=== PATIENT | male | born 1990 | race Caucasian/White ===

== ENCOUNTER 2022-07-05 08:20 | Outpatient (CLI) | payer BC, SELFPAY ==
--- NOTE | ~2022-07-05 | US_ITS ---
EXAMINATION: US venous doppler LE RT DATE: 07/05/2022 08:55 INDICATION: Closed bimalleolar fracture of right ankle. Right lower limb swelling. TECHNIQUE: Grayscale ultrasound images without and with compression and Doppler ultrasound images of the right lower extremity veins were obtained. COMPARISON: None. FINDINGS: The visualized portions of right common femoral vein, profunda (deep) femoral vein, femoral vein, pop liteal vein, peroneal veins, posterior tibial veins, and greater saphenous vein outflow are patent. T here is subcutaneous edema in right calf. IMPRESSION: 1. No deep venous thrombosis. Reviewed, dictated and finalized at location A. BAILIFF
== END 2022-07-05 08:21 | disposition home or self-care (01) ==
PROVIDERS: Visit Provider Orthopaedic Surgery
DX: S82.841A Displaced bimalleolar fracture of right lower leg, initial encounter for closed fracture (principal); X58.XXXA Exposure to other specified factors, initial encounter
CPT/HCPCS: 93971

== ENCOUNTER 2022-07-15 18:53 | Observation (INO) | payer BC, SELFPAY ==
--- NOTE | ~2022-07-15 | XR_ITS ---
EXAM: XR ankle RT min 3V DATE: 07/15/2022 20:01 HISTORY: pain NON INJ RECENT SURG ACUTE SWELLING DISCOLORED OOZE . COMPARISON: None available. FINDINGS: Decreased and patchy mineralization. Screw and plate fixation of the distal right fibula, no perihardware lucency or hardware fracture. No new acute fracture or dislocation. No lytic or blast ic lesion. Joint spaces are maintained. No erosion or periosteal change. Marked lateral soft tissue s welling with generalized leg and ankle subcutaneous edema. IMPRESSION: No radiographic evidence of osteomyelitis or hardware related complication. Disuse osteop enia. Marked lateral soft tissue swelling and generalized edema. Reviewed, dictated and finalized at location K. IMPRESSION: No radiographic evidence of osteomyelitis or hardware related compl ication. Disuse osteopenia. Marked lateral soft tissue swelling and generalized edema.
--- NOTE | ~2022-07-15 | XR_ITS ---
Clinical Indication: Sepsis PA and lateral views of the chest: Comparison: None Findings: The lungs are clear, without evidence of focal consolidation or pleural effusion. Cardiome diastinal silhouette is within normal limits. Bones and soft tissues are unremarkable. Impression: Normal chest. Reviewed, dictated and finalized at location . Impression: Normal chest.
[2022-07-15 19:16] VITALS: BP 148/87; PULSE 126; RESP 18; TEMP 37.4; O2SAT 97
[2022-07-15 21:20] LABS: Basophils Absolute Auto 0.1 K/mm3 (0.0-0.1); Basophils Percent Auto 0.4 % (0.2-1.2); Eosinophils Absolute Auto 0.1 K/mm3 (0-0.3); Eosinophils Percent Auto 0.8 % (0-4.4); Hematocrit 43.1 % (42.0-52.0); Hemoglobin 14.2 g/dL (14.0-18.0); Immature Granulocyte Absolute 0.07 K/mm3 (0.00-0.031); Immature Granulocyte Percent A 0.4 % (0-0.5); Lymphocytes Absolute Auto 1.63 K/mm3 (0.9-3.2); Lymphocytes Percent Auto 9.9 % (18.3-44.2); Mean Corpuscular HGB Conc 32.9 g/dl (32-36); Mean Corpuscular Hemoglobin 28.7 pg (26-34); Mean Corpuscular Volume 87.1 fl (80-100); Monocytes Absolute Auto 1.1 K/mm3 (0.1-0.6); Monocytes Percent Auto 6.6 % (2.6-8.5); Neutrophils Absolute Auto 13.5 K/mm3 (1.3-6.7); Neutrophils Percent Auto 81.9 % (45.5-73.1); Platelet Count Result 287 k/mm3 (150-375); Red Blood Count 4.95 M/mm3 (4.6-6.20); Red Cell Distribution Width 13.2 % (11.5-14.5); White Blood Count 16.5 K/mm3 (4.5-10.0)
[2022-07-15 21:29] LABS: Anion Gap 6 mmol/L (8-16); Blood Urea Nitrogen 19 mg/dL (9-20); Calcium 9.7 mg/dL (8.4-10.2); Carbon Dioxide 31 mmol/L (22-30); Chloride 104 mmol/L (98-107); Estimated CRCL calculation 135 ml/min; Estimated Glomerular Filt Rate > 60; Glucose 96 mg/dL (65-110); Potassium 4.5 mmol/L (3.4-5.0); Sodium 141 mmol/L (137-145)
[2022-07-15 23:23] VITALS: BP 141/88; PULSE 110; RESP 16; O2SAT 99
[2022-07-16] VITALS (13 sets, daily range): BP systolic 101–138; BP diastolic 49–87; PULSE 73–106; RESP 16–20; TEMP 36.4–36.9; O2SAT 98–100; BMI 47.6
--- NOTE | 2022-07-16 00:21 | ED.GENADULT ---
HPI - General Adult General Chief complaint: Extremity Injury, Lower <Kimo Hanna PA-C - Last Filed: 07/17/22 21:13> Stated complaint: possible infection <Kimo Hanna PA-C - Last Filed: 07/17/22 21:13> Time Seen by Provider: 07/16/22 00:15 <Kimo Hanna PA-C - Last Filed: 07/17/22 21:13> History of Present Illness HPI narrative: This is a 32-year-old male who presents to the ED with chief complaint of right lower leg swelling and redness and pain beginning this morning. States it started out as a 5 out of 10 and since he has been in the emergency department has increased to an 8 out of 10 pain. Reports swelling in the right foot and up into the right calf. He had an ankle fracture in March and had surgical hardware placed at that time. On July 05 he had another operation to take out one of the screws. He was doing fine with this operation up until today. He notes some drainage from the wound site that was orange/yellow in color. Reports low-grade fevers. Denies LOC, headache, nausea, vomiting, abdominal pain, chest pain, shortness of breath. He follows with [facility] orthopedics, Dr. Flores. <Kimo Hanna PA-C - Last Filed: 07/17/22 21:13> Related Data Home medications: Home Medications Medication Instructions Recorded Confirmed omeprazole 20 mg delayed 20 mg PO EVERY OTHER DAY 07/16/22 07/16/22 release,disintegrating tablet <Kimo Hanna PA-C - Last Filed: 07/17/22 21:13> Allergies/adverse reactions: Allergies Allergy/AdvReac Type Severity Reaction Status Date / Time Sulfa (Sulfonamide Allergy Swelling Verified 07/15/22 18:55 Antibiotics) <Kimo Hanna PA-C - Last Filed: 07/17/22 21:13> Review of Systems Review of Systems: CONSTITUTIONAL: Denies fever, chills, or sweats. EYES: Denies visual changes, redness, or discharge. ENT: Denies rhinorrhea, congestion, sore throat, or otalgia. CARDIOVASCULAR: Denies chest pain, palpitations, or edema. RESPIRATORY: Denies cough or dyspnea. GASTROINTESTINAL: Denies abdominal pain, nausea, vomiting, or diarrhea. GENITOURINARY: Denies dysuria or hematuria. SKIN: Endorses RLE drainage. Endorses RLE erythema. Denies rash or itching. MUSCULOSKELETAL: Endorses right lower extremity swelling and pain. Denies back pain, joint pain, or myalgia. NEUROLOGIC: Denies headache, numbness, dizziness, or weakness. PSYCHIATRIC: Denies anxiety or depression. <Kimo Hanna PA-C - Last Filed: 07/17/22 21:13> [facility] Past Medical History Medical History: Medical History Morbid obesity with BMI of 40.0-44.9, adult <Kimo Hanna PA-C - Last Filed: 07/17/22 21:13> Surgical History Surgical History: Surgical History Status post open reduction with internal fixation of fracture (03/2022) Right ankle fracture; with subsequent surgery July 05, 2022 chief removed the screw from patient's ankle <Kimo Hanna PA-C - Last Filed: 07/17/22 21:13> Family History Family History: Family History Mother Diabetes mellitus Father Diabetes mellitus <Kimo Hanna PA-C - Last Filed: 07/17/22 21:13> Social History Social History: Social History Social History: He is single has never been . He has a 10-year-old daughter that he shares custody of with his ex. He is a lifelong nonsmoker. He very rarely drinks alcohol and only in small amounts. He denies any illicit substance use. 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 Smoking status: Never smoker Alcohol intake: never Substance use: never Lack of Transportation: No Lack of Food: Never True Current Housing: I Have Housing Concerned About Future Housing: No Difficulty Paying Gas/Electric Bills: No Difficulty Paying for Meds: No
--- NOTE | 2022-07-16 00:37 | ECG_ITS ---
Measurements Intervals [place] Rate: 106 P: 18 PA: 157 QRS: 3 QRSD: 89 T: -1 QT: 319 QTc: 425 Interpretive Statements SINUS TACHYCARDIA EARLY PRECORDIAL R/S TRANSITION CONSIDER INFERIOR INFARCT, AGE INDETERMINATE ST ELEVATION IN ANT/HIGH LAT LEADS- PROBABLY EARLY REPOLARIZATION ABNORMALITY BASELINE ARTIFACT- I, III, AVL, AVF ABNORMAL ECG NO PREVIOUS ECG AVAILABLE FOR COMPARISON Electronically Signed On 07-16-2022 6:49:09 CDT by Melvin Arguello D.O.
--- NOTE | 2022-07-16 01:10 | PC.NURSE ---
pt states he noticed redness and swelling to r leg/foot yesterday morning. pt had r ankle sx in March and on 07/05 pt had another sx to remove screw. sutures in place to lateral aspect of ankle. pt states it had some drainage from the site yesterday morning. none noted at this time. pedal pulse palpable. pt denies any numbness/tingling.
[2022-07-16] MEDS: SODIUM CHLORIDE 0.9% IV 1,000 ML 999 ML IV CONT ×2 (01:20→03:31)
[2022-07-16 01:52] LABS: CRP 2.5 mg/dL (<1.0)
[2022-07-16 03:00] LABS: Appearance Urine Clear (Clear); Bilirubin Urine Negative (Negative); Blood Urine Negative (Negative); Color Urine Yellow (Yellow); Glucose Urine UA Negative (Negative); Ketones Urine Negative (Negative); Leukocyte Esterase Ur Negative LEU/UL (Negative); Nitrate Urine Negative (Negative); Protein Urine Negative (Negative); Specific Grav Ur 1.017 (1.001-1.035); Urobilinogen Urine 0.2 mg/dL (<2.0); pH Urine 5.5 (5.0-9.0)
[2022-07-16 03:04] LABS: Lactic Acid Reflex 1.2 mmol/L (0.7-2.0)
[2022-07-16 03:20] LABS: INR 1.1; Prothrombin Time 13.3 Seconds (11.1-14.7)
[2022-07-16 03:21] LABS: Erythrocyte Sedimentation Rate 46 mm/hr (0-20)
[2022-07-16 03:25] LABS: Add Urine Microscopic? NO
[2022-07-16 03:26] LABS: Partial Thromboplastin Time 33.5 SECONDS (22.3-36.8)
--- NOTE | 2022-07-16 04:49 | PM.IMHP ---
H&P: HPI History of Present Illness Date/Time: 07/16/22 04:49 Chief Complaint: Redness in pain right ankle, recent surgery Narrative: 32-year-old male with a past medical history of morbid obesity, GERD and right ankle fracture in March requiring ORIF May 01 who presented to the ER with 1 day of erythema and yellow drainage from surgical site. Patient had initial ankle fracture with ORIF in March. He had removal of a screw performed by Dr. Bojorquez on 07/05/2022. Then on the morning of the he woke up with redness of his surgical site extending anteriorly. He reports in that when he stood up he had some orange to pink drainage from the wound. As the day progressed he began to feel warm and had episodes of sweating. He became concerned and went to urgent care. Urgent care directed him to come to the ER for his CT of his ankle. He did not measure a temperature at home. His temperature on arrival to the ER was 99.4. In the ER he was mildly tachycardic. He received 2 L of IV fluids and antibiotic therapy with vancomycin. Blood cultures were obtained prior to antibiotics being provided. Chest x-ray was completed as part of sepsis protocol and was negative. X-ray of the ankle did not demonstrate any obvious underlying loosening of hardware or osteomyelitis. The patient has no baseline medical history. He is not diabetic. His blood pressures are within expected values. The surgeon instructed the ER to admit the patient to the medicine service. I can only assume he did not feel comfortable managing the patient's postoperative cellulitis. The nurse in the ER collected a superficial wound culture but did not express anything from the wound. When I evaluated the patient the patient told me that is. When I examined the patient he did have a small amount of induration/fluctuance at the base of the wound. I pushed on the wound was able to express a small amount of white purulent-appearing material. I sent this down for culture. The patient reports that he has been having swelling in his foot ever since his original surgery on May 01. The swelling in his foot had worsened last night after he had sat in the ER for 6 hours waiting to be seen. He reports that when he woke up with the erythema in his leg on the morning of the his pain was at 3 to 5/10 in intensity. He was unable to bear any weight on the extremity. The pain was burning, throbbing and aching in nature. After he had been sitting in the ER for many hours the pain was up to a 8/10 in intensity. He received IV Tylenol in the ER and his extremity was elevated. His pain is now 0 as long as the wound is not being probed. He reports that the swelling in his foot and toes has went down the since his leg has been elevated. The ER provider had marked the patient's area of cellulitis with a tissue marker. It appears that the patient's erythema is already improving. The patient's blood pressures were upper limit of normal in the ER. He does not have a history of hypertension and once his pain was controlled his blood pressures are now well within normal limits The patient had not taken any ibuprofen or Tylenol at home for pain. He has not been taking any narcotics. He states the last time he took a [place] was when he had his initial surgery. Review of Systems Review of Systems: 10 systems were reviewed with pertinent positives and negatives per HPI. Except as documented in the HPI, all other systems were reviewed and are negative. He denies history of obstructive sleep apnea, snoring, daytime fatigue or sleepiness. He reports that he has gained a significant amount of weight since his ankle fracture in March. [facility] Past Medical History Medical History (Updated 07/16/22 @ 04:55 by Fiorella Bell DO) Morbid obesity with BMI of 40.0-44.9, adult Surgical History Surgical History (Updated 07/16/22 @ 04:55 by Fiorella Bell DO) Status post open reduction with in
[2022-07-16] MEDS: SODIUM CHLORIDE 0.9% IV 1,000 ML 125 ML IV CONT ×3 (05:45→23:49)
--- NOTE | 2022-07-16 05:57 | ADMGEN ---
This patient, Bharath Mann, was admitted to Medical Room 257-. Patient/family oriented to hospital policies and general routines including ID bracelet, bed and alarms, visiting hours, pain management, procedures, bathroom and other care routines, personal items, smoking policy, room service/diet, and visiting hours. Information on how to activate the Rapid Response Team has been discussed. Patient/Family are encouraged to report perceived risks to care and to ask questions if they do not understand what they are told or what they should do.
[2022-07-16] MEDS: ENOXAPARIN 40 MG/0.4 ML SYRINGE SUB-Q (08:17)
[2022-07-16] MEDS: PANTOPRAZOLE 40 MG TABLET PO (08:17)
[2022-07-16 09:19] LABS: Basophils Absolute Auto 0.1 K/mm3 (0.0-0.1); Basophils Percent Auto 0.4 % (0.2-1.2); Eosinophils Absolute Auto 0.1 K/mm3 (0-0.3); Eosinophils Percent Auto 0.6 % (0-4.4); Hematocrit 39.3 % (42.0-52.0); Hemoglobin 12.9 g/dL (14.0-18.0); Immature Granulocyte Absolute 0.06 K/mm3 (0.00-0.031); Immature Granulocyte Percent A 0.4 % (0-0.5); Lymphocytes Absolute Auto 2.23 K/mm3 (0.9-3.2); Lymphocytes Percent Auto 15.6 % (18.3-44.2); Mean Corpuscular HGB Conc 32.8 g/dl (32-36); Mean Corpuscular Hemoglobin 28.5 pg (26-34); Mean Corpuscular Volume 86.8 fl (80-100); Mean Platelet Volume 9.3 fl (7.4-10.4); Monocytes Absolute Auto 1.2 K/mm3 (0.1-0.6); Monocytes Percent Auto 8.3 % (2.6-8.5); Neutrophils Absolute Auto 10.7 K/mm3 (1.3-6.7); Neutrophils Percent Auto 74.7 % (45.5-73.1); Platelet Count Result 267 k/mm3 (150-375); Red Blood Count 4.53 M/mm3 (4.6-6.20); Red Cell Distribution Width 13.3 % (11.5-14.5); White Blood Count 14.3 K/mm3 (4.5-10.0)
[2022-07-16 09:30] LABS: Estimated CRCL calculation 182 ml/min; Estimated Glomerular Filt Rate > 60
[2022-07-16 09:46] LABS: Alanine Aminotransferase 42 U/L (6-50); Albumin Level 4.1 g/dL (3.5-5.1); Alkaline Phosphatase 75 U/L (38-126); Anion Gap 6 mmol/L (8-16); Aspartate Amino Transferase 29 U/L (17-59); Blood Urea Nitrogen 14 mg/dL (9-20); Calcium 9.1 mg/dL (8.4-10.2); Carbon Dioxide 28 mmol/L (22-30); Chloride 104 mmol/L (98-107); Estimated CRCL calculation 182 ml/min; Estimated Glomerular Filt Rate > 60; Glucose 104 mg/dL (65-110); Potassium 3.8 mmol/L (3.4-5.0); Sodium 138 mmol/L (137-145)
--- NOTE | 2022-07-16 10:32 | PM.IMHP ---
H&P: HPI History of Present Illness Date/Time: 07/16/22 10:32 Chief Complaint: The patient is a 32-year-old male presents to the emergency room last night with swelling and erythema localized to the left foot and ankle mostly laterally. The patient 3 months ago underwent an open reduction internal fixation with syndesmotic screw placement and lateral plate and screw fixation for a lateral malleolus fracture and a syndesmotic disruption. The patient had some chronic swelling but was doing much better everything and healed up nicely. He then was taken to the operating room a week and half ago for syndesmosis screw removal. He states yesterday he started to develop increasing swelling and erythema throughout the lateral ankle he had a little bit of serous drainage from the incision which was otherwise looking good. He denies any constitutional symptoms no fevers chills night sweats is eating and sleeping well but was concerned about the swelling and erythema came to the emergency room and now has been admitted for antibiotic treatment for what appears to be postop screw removal cellulitis of the left foot and ankle. He has otherwise good motion strength and stability no pain or tenderness medially no red streaking up the leg calf is benign. Review of Systems Review of Systems: Ten point review of systems otherwise negative [facility] Past Medical History Medical History Morbid obesity with BMI of 40.0-44.9, adult Surgical History Surgical History Status post open reduction with internal fixation of fracture (03/2022) Right ankle fracture; with subsequent surgery July 05, 2022 chief removed the screw from patient's ankle Family History Family History Mother Diabetes mellitus Father Diabetes mellitus Social History Social History Social History: He is single has never been . He has a 10-year-old daughter that he shares custody of with his ex. He is a lifelong nonsmoker. He very rarely drinks alcohol and only in small amounts. He denies any illicit substance use. 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 Smoking status: Never smoker Alcohol intake: never Substance use: never Lack of Transportation: No Lack of Food: Never True Current Housing: I Have Housing Concerned About Future Housing: No Difficulty Paying Gas/Electric Bills: No Difficulty Paying for Meds: No Currently Unemployed: No Education: High School Diploma/GED Difficulty w/ Childcare or Family Care: No Spiritual care concerns: No Meds Home Medications and Allergies Home Medications Medication Instructions Recorded Confirmed Type omeprazole 20 mg delayed 20 mg PO EVERY OTHER DAY 07/16/22 07/16/22 History release,disintegrating tablet Allergies Allergy/AdvReac Type Severity Reaction Status Date / Time Sulfa (Sulfonamide Allergy Swelling Verified 07/15/22 18:55 Antibiotics) Vital Signs Vital Signs - 24 hr 07/15/22 19:16 07/15/22 23:23 07/16/22 00:45 Temperature 37.4 C Pulse Rate 126 H 110 H 106 H Respiratory Rate 18 16 16 Blood Pressure 148/87 H 141/88 H 138/87 Pulse Oximetry 97 99 100 Oxygen Delivery Room Air 07/16/22 01:45 07/16/22 03:00 07/16/22 04:00 Temperature Pulse Rate 96 91 87 Respiratory Rate 18 16 20 Blood Pressure 136/79 116/62 101/60 Pulse Oximetry 100 100 100 Oxygen Delivery 07/16/22 05:00 07/16/22 05:33 07/16/22 06:14 Temperature 36.4 C Pulse Rate 85 90 Respiratory Rate 18 20 Blood Pressure 119/54 L 122/63 Pulse Oximetry 100 98 Oxygen Delivery Room Air 07/16/22 06:26 07/16/22 08:00 07/16/22 08:00 Temperature Pulse Rate 77 88 Respiratory Rate Blood Pressure Pulse Oximetry Oxygen Delivery Room Air Exam Narrative: on
--- NOTE | 2022-07-16 12:17 | PM.IMPN ---
Progress Note: A&P Assessment and Plan (1) Cellulitis of leg, right: Code(s): L03.115 - Cellulitis of right lower limb Status: Acute Assessment and Plan: The patient met borderline sepsis criteria in the ER with tachycardia and leukocytosis in the setting of cellulitis. The patient's tachycardia has already resolved. Patient's condition has improved with appropriate treatment. Patient is being continued on maintenance IV fluids and vancomycin. Will defer changing antibiotic therapy to orthopedic services. Orthopedic surgeon that performed procedure was consulted from the ER. Blood cultures and wound cultures pending. Pain medications have been provided with Tylenol and Toradol. Patient's white blood cell count trending down. (2) Status post open reduction with internal fixation of fracture: Onset Date: 03/2022 Code(s): Z98.890 - Other specified postprocedural states; Z87.81 - Personal history of (healed) traumatic fracture Status: Acute Assessment and Plan: The patient did have an area of increased induration in a most fluctuance at the base of the incision. Will defer whether not to perform further imaging to the orthopedic surgeon. . (3) Sepsis: Code(s): A41.9 - Sepsis, unspecified organism Status: Acute Assessment and Plan: see above. Patient on vancomycin. Subjective Date/time seen: 07/16/22 12:17 Interval history: Patient lying bed resting. Patient doing well today and has less pain in the left ankle than he did upon arrival. Patient's erythema has also seemed to be improved. Patient did have fever, body aches and chills for initiation of antibiotic therapy, this has since resolved. Patient is getting vancomycin and orthopedics also seeing patient. Review of Systems Review of Systems: All systems reviewed & are unremarkable except as noted in HPI and below Exam Narrative: GENERAL: Comfortable, no acute distress HENMT: moist mucous membranes EYES: EOM intact b/l NECK: no lymphadenopathy RESPIRATORY: clear to auscultation CARDIO: RRR GI: soft, nontender, bowel sounds present SKIN: no rashes EXTREMITIES: edematous right ankle and foot with surgical incision above the lateral malleoli with [address] open to air; no purulent drainage from incision site; erythema seems to have regressed from marker line that was placed in the ED; dorsalis pedis pulses +2 bilaterally; right ankle is warm to touch. Objective Data Vital Signs Vital Signs: Vital Signs - 24 hr 07/15/22 19:16 07/15/22 23:23 07/16/22 00:45 Temperature 99.4 F Pulse Rate 126 H 110 H 106 H Respiratory Rate 18 16 16 Blood Pressure 148/87 H 141/88 H 138/87 Pulse Oximetry 97 99 100 Oxygen Delivery Room Air 07/16/22 01:45 07/16/22 03:00 07/16/22 04:00 Temperature Pulse Rate 96 91 87 Respiratory Rate 18 16 20 Blood Pressure 136/79 116/62 101/60 Pulse Oximetry 100 100 100 Oxygen Delivery 07/16/22 05:00 07/16/22 05:33 07/16/22 06:14 Temperature 97.6 F Pulse Rate 85 90 Respiratory Rate 18 20 Blood Pressure 119/54 L 122/63 Pulse Oximetry 100 98 Oxygen Delivery Room Air 07/16/22 06:26 07/16/22 08:00 07/16/22 08:00 Temperature Pulse Rate 77 88 Respiratory Rate Blood Pressure Pulse Oximetry Oxygen Delivery Room Air Intake/Output Intake/Output: Intake & Output 07/13/22 07/14/22 07/15/22 07/16/22 23:59 23:59 23:59 23:59 Intake Total 3080 Output Total 825 Balance 2255 Meds/Results Medications: Active Medications Generic Name Dose Route Start Last Admin Trade Name Freq PRN Reason Stop Dose Admin Acetaminophen 650 mg 07/16/22 04:43 Acetaminophen 325 Mg Tablet PO Q4H PRN Mild Pain (1-3) or Fever Enoxaparin Sodium 40 mg 07/16/22 09:00 07/16/22 08:17 Enoxaparin 40 Mg/0.4 Ml Syringe SUB-Q 40 mg DAILY AARON Administration Sodium
[2022-07-17] VITALS: PULSE 68
[2022-07-17 04:00] VITALS: PULSE 70
[2022-07-17 04:51] VITALS: BP 132/77; PULSE 82; RESP 20; TEMP 36.3; O2SAT 98
[2022-07-17 05:38] LABS: Basophils Absolute Auto 0.1 K/mm3 (0.0-0.1); Basophils Percent Auto 0.5 % (0.2-1.2); Eosinophils Absolute Auto 0.2 K/mm3 (0-0.3); Eosinophils Percent Auto 1.7 % (0-4.4); Hematocrit 38.7 % (42.0-52.0); Hemoglobin 12.9 g/dL (14.0-18.0); Immature Granulocyte Absolute 0.02 K/mm3 (0.00-0.031); Immature Granulocyte Percent A 0.2 % (0-0.5); Lymphocytes Absolute Auto 2.56 K/mm3 (0.9-3.2); Lymphocytes Percent Auto 27.6 % (18.3-44.2); Mean Corpuscular HGB Conc 33.3 g/dl (32-36); Mean Corpuscular Hemoglobin 28.3 pg (26-34); Mean Corpuscular Volume 84.9 fl (80-100); Monocytes Absolute Auto 0.7 K/mm3 (0.1-0.6); Monocytes Percent Auto 7.2 % (2.6-8.5); Neutrophils Absolute Auto 5.8 K/mm3 (1.3-6.7); Neutrophils Percent Auto 62.8 % (45.5-73.1); Platelet Count Result 265 k/mm3 (150-375); Red Blood Count 4.56 M/mm3 (4.6-6.20); Red Cell Distribution Width 13.1 % (11.5-14.5); White Blood Count 9.3 K/mm3 (4.5-10.0)
[2022-07-17 05:46] LABS: Anion Gap 7 mmol/L (8-16); Blood Urea Nitrogen 12 mg/dL (9-20); Calcium 9.3 mg/dL (8.4-10.2); Carbon Dioxide 27 mmol/L (22-30); Chloride 105 mmol/L (98-107); Estimated CRCL calculation 182 ml/min; Estimated Glomerular Filt Rate > 60; Glucose 116 mg/dL (65-110); Potassium 3.8 mmol/L (3.4-5.0); Sodium 139 mmol/L (137-145)
[2022-07-17 08:00] VITALS: PULSE 57
[2022-07-17] MEDS: ENOXAPARIN 40 MG/0.4 ML SYRINGE SUB-Q (08:36)
[2022-07-17] MEDS: SODIUM CHLORIDE 0.9% IV 1,000 ML 125 ML IV CONT (10:11)
--- NOTE | 2022-07-17 11:06 | PM.PNORT ---
Progress Note: A&P Assessment and Plan (1) Cellulitis of right ankle: Code(s): L03.115 - Cellulitis of right lower limb Status: Acute Plan the patient has resolving cellulitis of the right foot and ankle status post screw removal, incision is clean and dry looking better today when medical service clears the patient for discharge to home, per Dr. Flores's recommendation we will start a course of doxycycline 100 mg b.i.d. on an outpatient basis and follow the patient in our office. The patient voiced understanding and agrees with above plan. Subjective Subjective Date/Time Seen: patient appears to be improving was seen this morning at 11:00 a.m. July 17, 2022. Has had 24 hours of IV antibiotics erythema significantly reduced swelling moderately reduced right foot and ankle. Patient states he otherwise feels well no other complaints no fevers chills no constitutional symptoms no pain at this point feeling much better. Review of Systems Review of Systems: Ten point review of systems negative Exam Narrative: right foot and ankle with reduce swelling moderate nature, wound is clean and dry no evidence of drainage no swelling around the wound itself. Erythema has significantly reduced overnight with IV antibiotics. He patient does not have any discomfort while in bed now is alert oriented x3. Normal mood and affect. No acute distress no evidence of spreading infection no streaks up the leg calves benign, neurovascular patient is intact Objective Data Vital Signs Vital Signs: Vital Signs - 24 hr 07/16/22 12:00 07/16/22 14:47 07/16/22 16:00 Temperature 36.7 C Pulse Rate 73 87 89 Respiratory Rate 16 Blood Pressure 122/57 L Pulse Oximetry 98 Oxygen Delivery 07/16/22 21:39 07/16/22 20:00 07/16/22 20:00 Temperature 36.9 C Pulse Rate 78 85 Respiratory Rate 20 Blood Pressure 130/49 L Pulse Oximetry 98 Oxygen Delivery Room Air 07/17/22 00:00 07/17/22 04:00 07/17/22 04:51 Temperature 36.3 C L Pulse Rate 68 70 82 Respiratory Rate 20 Blood Pressure 132/77 Pulse Oximetry 98 Oxygen Delivery 07/17/22 08:00 07/17/22 08:00 Temperature Pulse Rate 57 L Respiratory Rate Blood Pressure Pulse Oximetry Oxygen Delivery Room Air Intake/Output Intake/Output: Intake & Output 07/14/22 07/15/22 07/16/2221/23 23:59 23:59 23:59 23:59 Intake Total 6410 2030 Output Total 3650 1000 Balance 2760 1030 Meds/Results Medications: Active Medications Generic Name Dose Route Start Last Admin Trade Name Freq PRN Reason Stop Dose Admin Acetaminophen 650 mg 07/16/22 04:43 Acetaminophen 325 Mg Tablet PO Q4H PRN Mild Pain (1-3) or Fever Enoxaparin Sodium 40 mg 07/16/22 09:00 07/17/22 08:36 Enoxaparin 40 Mg/0.4 Ml Syringe SUB-Q 40 mg DAILY AARON Administration Sodium Chloride 1,000 mls @ 125 mls/hr 07/16/22 04:10 07/17/22 10:11 Normal Saline Iv IV CONT 125 mls/hr .Q8H AARON Administration Vancomycin HCl 2,000 mg in 500 mls @ 250 mls/hr 07/16/22 14:00 07/17/22 04:06 Vancomycin 2,000 Mg/D5w 500 Ml IVPB Infused Q12H AARON Infusion Ketorolac Tromethamine 30 mg 07/16/22 04:47 Ketorolac 30 Mg/Ml Vial (*Bkc) IV PUSH Q6H PRN Pain Rated 5-10 Pantoprazole Sodium 40 mg 07/16/22 09:00 07/16/22 08:17 Pantoprazole 40 Mg Tablet PO 40 mg Q48H AARON Administration Radiology Results: ITS Impressions Ankle X-Ray 07/15/22 20:10 IMPRESSION: No radiographic evidence of osteomyelitis or hardware related complication. Disuse osteopenia. Marked lateral soft tissue swelling and generalized edema. Chest X-Ray 07/16/22 06:31 Impression: Normal chest. Labs Labs: Laboratory Results - last 24 hr 07/17/22 07/17/22 05:22 05:22 WBC 9.3 RBC 4.56 L Hgb 12.9 L Hct 38.7 L MCV 84.9 MCH 28.3 MCHC 33.3 RDW 13.1 Plt Count 265 MPV 9.0 Immature Gran %
--- NOTE | 2022-07-17 13:34 | PM.DS ---
DS: Admitting Diagnosis Discharge Date 07/17/22 Admitting Diagnosis Right foot cellulitis DS: Discharge Diagnosis Discharge Diagnosis (1) Cellulitis of leg, right: Code(s): L03.115 - Cellulitis of right lower limb Status: Acute Assessment and Plan: The patient met borderline sepsis criteria in the ER with tachycardia and leukocytosis in the setting of cellulitis. The patient's tachycardia has already resolved. Patient's condition has improved with appropriate treatment. Patient is being continued on maintenance IV fluids and vancomycin. Will defer changing antibiotic therapy to orthopedic services. Orthopedic surgeon that performed procedure was consulted from the ER. Blood cultures and wound cultures pending. Pain medications have been provided with Tylenol and Toradol. Patient's white blood cell count trending down. (2) Status post open reduction with internal fixation of fracture: Onset Date: 03/2022 Code(s): Z98.890 - Other specified postprocedural states; Z87.81 - Personal history of (healed) traumatic fracture Status: Acute Assessment and Plan: The patient did have an area of increased induration in a most fluctuance at the base of the incision. Will defer whether not to perform further imaging to the orthopedic surgeon. . (3) Sepsis: Code(s): A41.9 - Sepsis, unspecified organism Status: Acute Assessment and Plan: see above. Patient on vancomycin. DS: Summary Hospital Course Reason for hospitalization: right foot cellulitis Hospital Course: This is a 32-year-old male with past medical history significant for GERD, obesity and right ankle fracture. Patient fractured her right ankle in March of 2022 that required a ORIF of the right ankle. patient recently had [address] Flores on 07/05/2022. Patient presented to the ED on 07/16/2022 due to erythema and yellow drainage from surgical site. Prior to ED arrival he had been running a low-grade fever along with body aches and chills. In the ER patient was found to be mildly tachycardic. Patient was started on vancomycin and orthopedics was consulted. X-ray of the ankle did not demonstrate any obvious underlying loosening of hardware or osteomyelitis. Patient did have small amount of induration and fluctuance at the base of the wound. admitting provider was able to express purulent material out of the wound and sent for culture. Culture is negative to date. Patient received analgesics as needed. Marker Was used to trace the borders of patient's erythema so it could be monitored. After 2 days of vancomycin patient's erythema regressed and swelling improved. Patient's pain also improved. On day of discharge patient had pain at the surgical site when it was touched which is an extreme improvement from admission. Patient c/o theme a almost completely gone at the time of discharge. Orthopedics recommended 2 weeks of doxycycline and a follow-up in their office. Patient's labs and vital signs stable at discharge. Time Spent with Patient Time attestation: Total time spent providing and/or coordinating discharge services: Exam Narrative: GENERAL: Comfortable, no acute distress HENMT: moist mucous membranes EYES: EOM intact b/l NECK: no lymphadenopathy RESPIRATORY: clear to auscultation CARDIO: RRR GI: soft, nontender, bowel sounds present SKIN: no rashes EXTREMITIES: edematous right ankle and foot with surgical incision above the lateral malleoli with [address] open to air; no purulent drainage from incision site; erythema seems to have regressed from marker line that was placed in the ED; dorsalis pedis pulses +2 bilaterally; right ankle is warm to touch. DS: Data Data Completed and Pending Labs on day of discharge: Labs from last 24 hours 07/17/22 07/17/22 07/17/22 12:53 05:22 05:22 WBC 9.3 RBC 4.56 L Hgb 12.9 L H
[2022-07-17 14:00] VITALS: BP 134/77; PULSE 78; RESP 16; TEMP 36.8; O2SAT 100
[2022-07-17 14:27] LABS: Vancomycin Trough 8.9 ug/mL (10.0-20.0)
== END 2022-07-17 17:58 | disposition home or self-care (01) ==
LOC: ANHED 07-16 04:14 → ANH2MED 07-17 11:39
PROVIDERS: Emergency Medicine; Internal Medicine Critical Care Medicine; Admitting Provider Internal Medicine; Emergency Provider Physician Assistant; Visit Provider Internal Medicine
DX: L03.115 Cellulitis of right lower limb (principal); Z87.81 Personal history of (healed) traumatic fracture; Z98.890 Other specified postprocedural states; A41.01 Sepsis due to Methicillin susceptible Staphylococcus aureus; I10 Essential (primary) hypertension; R00.0 Tachycardia, unspecified; D72.829 Elevated white blood cell count, unspecified; R70.0 Elevated erythrocyte sedimentation rate; R79.82 Elevated C-reactive protein (CRP); R94.31 Abnormal electrocardiogram [ECG] [EKG]; E66.01 Morbid (severe) obesity due to excess calories; Z68.42 Body mass index [BMI] 45.0-49.9, adult; K21.9 Gastro-esophageal reflux disease without esophagitis; Z79.899 Other long term (current) drug therapy
CPT/HCPCS: 36415; 71046; 73610; 80048; 80053; 80202; 81003; 82565; 83605; 85025; 85610; 85652; 85730; 86140; 87040; 87070; 87147; 87181; 87186; 87205; 93005; 96361; 96365; 96366; 96372; 96375; 99285; A9270; G0378; J0131; J1650; J3370; J7030